=== PATIENT | male | born 1965 | race Caucasian/White ===

== ENCOUNTER 2020-07-06 13:10 | Emergency (ER) | payer BC, OTHER ==
[2020-07-06 13:29] VITALS: BP 115/71; PULSE 74; RESP 18; TEMP 98.9
[2020-07-06] MEDS ORDERED: KETOROLAC 15 MG/ML 1 ML VIAL IM STA (13:47)
--- NOTE | 2020-07-06 14:27 | ED ---
General Adult HPI - General Chief complaint: Extremity Injury, Lower Stated complaint: IHS L Leg Injury Time Seen by Provider: 07/06/20 13:42 Source: patient, RN notes reviewed, old records reviewed Mode of arrival: wheelchair Limitations: physical limitation - History of Present Illness Initial comments: 55-year-old male patient presents to ED for evaluation of left hamstring injury. Patient reports that he was outside when he slipped on some water. Patient reports he caught himself on a pole did not fall to ground, he felt a pull and possibly a pop in his left hamstring region. Patient and is unable to bear weight on it left lower extremity. Denies any knee pain denies any other complaints. Systemic: Pt denies fatigue, fever/chills, rash. Pt denies weakness, night sweats, weight loss. Neuro: Pt denies headache, visual disturbances, syncope or pre-syncope. HEENT: Pt denies ocular discharge or irritation, otalgia, rhinorrhea, pharyngitis or notable lymphadenopathy. Cardiopulmonary: Pt denies chest pain, SOB, heart palpitations, dyspnea on exertion. Abdominal/GI: Pt denies abdominal pain, n/v/d. : Pt denies dysuria, burning w/ urination, frequency/urgency. Denies new onset urinary or bowel incontinence. Neuro: Pt denies new onset weakness, paresthesias. - Related Data Allergies Allergy/AdvReac Type Severity Reaction Status Date / Time No Known Allergies Allergy Verified 07/06/20 13:29 Review of Systems ROS Statement: Those systems with pertinent positive or pertinent negative responses have been documented in the HPI. ROS Other: All systems not noted in ROS Statement are negative. Past Medical History Past Medical History: Hypertension, Thyroid Disorder History of Any Multi-Drug Resistant Organisms: None Reported Additional Past Surgical History / Comment(s): ACL RIGHT KNEE, HERNIA Past Psychological History: No Psychological Hx Reported Smoking Status: Never smoker Past Alcohol Use History: None Reported Past Drug Use History: None Reported General Exam - General Exam Comments Initial Comments: Constitutional: NAD, AOX3, Pt has pleasant affect. HEENT: NC/AT, trachea midline, neck supple, no lymphadenopathy. External ears appear normal, without discharge. Mucous membranes moist. EOM intact. There is no scleral icterus. No pallor noted. Cardiopulmonary: RRR, no murmurs, rubs or gallops, no JVD noted. Lungs CTAB in anterior and posterior knapp. No peripheral edema. Abdominal exam: Abdomen soft, non-distended and nontender. Neuro: CN II-XII grossly intact. No nuchal rigidity. No raccon eyes, no hernandez sign, no hemotympanum. No cervical spinal tenderness. MSK: left hamstring is mildly tender to palpation. No skin changes. Distal pulses are intact and equal. No other areas of tenderness on lower extremities bilaterally. No posterior calf tenderness bilaterally. Sensation intact in upper and lower extremities. Limitations: physical limitation Course Vital Signs 07/06/20 13:24 Temperature 98.9 F Pulse Rate 74 Respiratory 18 Rate Blood Pressure 115/71 O2 Sat by Pulse 98 Oximetry Medical Decision Making - Medical Decision Making Patient. Patient proceeded chief complaint of hamstring injury. Patient vital signs stable, afebrile. Physical exam displayed some hamstring tenderness. Plain film left femur is negative. Patient discharged with outpatient follow-up and return precautions. Disposition Clinical Impression: Hamstring injury Disposition: HOME SELF-CARE Condition: Stable Instructions (If sedation given, give patient instructions): Musculoskeletal Pain (ED) Additional Instructions: Follow with primary care provider and orthopedic consult tomorrow. Use pain medication only as needed. If unable to bear weight may use crutches. may do light weightbearing as tolerated. Return to ER if any worsening symptoms. Is patient prescribed a controlled substance at d/c from ED?: No Referrals: Christ Morrison MD [Primary Care Provider] - 1-2 days Tommy Kennedy DO [Doctor of Osteopathic Medicine] - 1-2 days
--- NOTE | 2020-07-06 14:31 | XR ---
Left femur HISTORY: Pain Frontal and lateral views of the left femur Bone mineralization, joint spaces and alignment are maintained. Probable vascular calcifications are present within the pelvis. IMPRESSION: No fracture or dislocation.
[2020-07-06] MEDS ORDERED: ACET/COD 300 MG/30 MG STARTER PACK 6 TAB BTL PO STA (14:37)
== END 2020-07-06 14:57 | disposition home or self-care (01) ==
LOC: EC 13:10
DX: S79.822A Other specified injuries of left thigh, initial encounter (principal); W18.49XA Other slipping, tripping and stumbling without falling, initial encounter; Y93.01 Activity, walking, marching and hiking; Y92.830 Public park as the place of occurrence of the external cause
CPT/HCPCS: 73552; 96372; 99284; J1885